=== PATIENT | female | born 1985 | race Caucasian/White ===

== ENCOUNTER 2020-12-23 17:51 | Emergency (ER) | payer OTHER ==
--- NOTE | 2020-12-23 19:29 | EDM.PDOC ---
ED HPI GENERAL MEDICAL PROBLEM - General Chief Complaint: [employer] Problem Stated Complaint: BABY IS NOT MOVING ALOT Time Seen by Provider: 12/23/20 17:51 Source of Information: Reports: Patient History Limitations: Reports: No Limitations - History of Present Illness INITIAL COMMENTS - FREE TEXT/NARRATIVE: Pt. presents to ER with complaints of lack of movement. Pt. states that she is driving from [place] to [place] and stopped here because there was lack of movement. EDC is February 12. Denies any vaginal bleeding or discharge. No fever or chills. No nausea, vomiting, or abdominal pain. Denies experiencing any contactions or back pain. Onset: Today Onset Date: 12/23/20 Location: Reports: Abdomen ED ROS GENERAL - Review of Systems Review Of Systems: Comprehensive ROS is negative, except as noted in HPI. ED EXAM, GENERAL - Physical Exam Exam: See Below Exam Limited By: No Limitations General Appearance: Alert, WD/WN, No Apparent Distress GI/Abdominal: Soft, Non-Tender, No Organomegaly, No Distention, No Mass, Pelvis Stable, Other (FHT 138-150). No: Distended, Guarding, Tender Departure - Departure Time of Disposition: 18:30 Disposition: Home, Self-Care 01 Clinical Impression: Decreased movement - Discharge Information Instructions: Form - Movement Counts Referrals: PCP,Not In Area [Primary Care Provider] - Additional Instructions: Follow-up with [employer] as needed. - Problem List Review Problem List Initiated/Reviewed/Updated: Yes - Assessment/Plan Plan: Advised to follow-up in clinic as needed.
[2020-12-23 19:45] VITALS: BP 131/73; PULSE 91
== END 2020-12-23 18:30 | disposition home or self-care (01) ==
LOC: VM.ED 17:51
DX: O36.8120 Decreased fetal movements, second trimester, not applicable or unspecified (principal)
CPT/HCPCS: 99283